=== PATIENT | male | born 1980 | race American Indian/Alaskan Native ===

== ENCOUNTER 2018-03-20 06:34 | Emergency (ER) | payer SELFPAY ==
[2018-03-20 07:35] VITALS: BP 120/69
[2018-03-20] MEDS ORDERED: DELTASONE PO ONE (08:11)
[2018-03-20] MEDS ORDERED: DUONEB *Not for PRN Use IH ONE (08:12)
--- NOTE | 2018-03-20 08:14 | Emergency Department Report ---
- General Chief Complaint: Upper Respiratory Infection Stated Complaint: FEVER,VOMITING,CHILLS Time Seen by Provider: 03/20/18 08:07 Source: patient Mode of arrival: Ambulatory Limitations: No Limitations - History of Present Illness MD Complaint: fever, cough, sore throat, rhinorrhea, nasal congestion, sinus pain -: Gradual, days(s) Consistency: constant Associated Symptoms: fever, chills, nasal congestion, sore throat, cough. denies: myalgias, diaphoresis, headache, stiff neck, chest pain, shortness of breath, abdominal pain, nausea, vomiting, diarrhea, dysuria, rash, confusion, right sweats, weight loss, epistaxis, hoarseness, ear pain - Related Data Previous Rx's Medication Instructions Recorded Last Taken Type ALBUTEROL Inhaler (OR & NICU) 2 puff IH QID PRN #1 inhalation 03/20/18 Unknown Rx [ProAir HFA Inhaler] Azithromycin [Zithromax Z-MIKE] 250 mg PO DAILY #6 tablet 03/20/18 Unknown Rx Fluticasone [Flonase] 1 spray NS QDAY #1 bottle 03/20/18 Unknown Rx predniSONE [Deltasone] 50 mg PO QDAY #5 tab 03/20/18 Unknown Rx Allergies Allergy/AdvReac Type Severity Reaction Status Date / Time No Known Allergies Allergy Unverified 03/20/18 07:35 ED Review of Systems ROS: Stated complaint: FEVER,VOMITING,CHILLS Other details as noted in HPI Comment: All other systems reviewed and negative Constitutional: chills, fever Eyes: denies: eye pain, eye discharge ENT: throat pain. denies: dental pain Respiratory: cough, wheezing. denies: orthopnea, shortness of breath Cardiovascular: denies: chest pain, palpitations, dyspnea on exertion, orthopnea Endocrine: denies: flushing, intolerance to cold, intolerance to heat Gastrointestinal: denies: abdominal pain, nausea, vomiting Genitourinary: denies: urgency, dysuria Musculoskeletal: denies: back pain Skin: denies: rash, lesions Neurological: headache. denies: weakness, numbness Psychiatric: denies: anxiety, depression Hematological/Lymphatic: denies: easy bleeding ED Past Medical Hx - Past Medical History Previous Medical History?: No - Surgical History Past Surgical History?: No - Family History Family history: no significant - Social History Smoking Status: Current Every Day Smoker Substance Use Type: None - Medications Home Medications: Home Medications Medication Instructions Recorded Confirmed Last Taken Type ALBUTEROL Inhaler (OR & NICU) 2 puff IH QID PRN #1 inhalation 03/20/18 Unknown Rx [ProAir HFA Inhaler] Azithromycin [Zithromax Z-MIKE] 250 mg PO DAILY #6 tablet 03/20/18 Unknown Rx Fluticasone [Flonase] 1 spray NS QDAY #1 bottle 03/20/18 Unknown Rx predniSONE [Deltasone] 50 mg PO QDAY #5 tab 03/20/18 Unknown Rx ED Physical Exam - General Limitations: No Limitations, Language Barrier General appearance: alert, in no apparent distress - Head Head exam: Present: atraumatic - Eye Eye exam: Present: PERRL, EOMI Pupils: Present: normal accommodation - ENT ENT exam: Present: normal exam, mucous membranes moist, other (pharynx red no exudate) - Neck Neck exam: Present: normal inspection - Respiratory Respiratory exam: Present: wheezes (b) - Cardiovascular Cardiovascular Exam: Present: regular rate, tachycardia, other (fever tx and hr dec) - GI/Abdominal GI/Abdominal exam: Present: soft. Absent: distended, tenderness, guarding, rebound - Rectal Rectal exam: Present: deferred - Extremities Exam Extremities exam: Present: normal inspection - Back Exam Back exam: Present: normal inspection - Neurological Exam Neurological exam: Present: alert, oriented X3 - Psychiatric Psychiatric exam: Present: normal affect, normal mood - Skin Skin exam: Present: warm, dry, rash ED Course Vital Signs 03/20/18 03/20/18 03/20/18 07:33 08:47 09:20 Temperature 99.1 F Pulse Rate 74 Pulse Rate [ 82 100 H Posterior Bilateral Throughout] Respiratory 18 Rate Respiratory 20 20 Rate [Posterior Bilateral Throughout] Blood Pressure 120/69 O2 Sat by Pulse 95 Oximetry - Reevaluation(s) Reevaluation #1: 03/20/18 09:38 urti sinus pain and pressure sore throat cough purulent sputum asthma as kid no abd pain no dysuria Reevaluation #2: 03/20/18 09:39 rt tx with improvement fever dec w meds taking po ambulatory discussed dc follow up and plan of care with pt and . ED Medical Decision Making - Radiology Data Radiology results: report reviewed, image reviewed - Medical Decision Making fever purulent sputum cough wheezing hx asthma no consolidation responding to treatment - Differential Diagnosis urti v asthma ae w or wo urti v pna Critical care attestation.: If time is entered above; I have spent that time in minutes in the direct care of this critically ill patient, excluding procedure time. ED Disposition Clinical Impression: URTI (acute upper respiratory infection), Asthma exacerbation, Fever, Sinusitis Disposition: - TO HOME OR SELFCARE Is pt being admited?: No Does the pt Need Aspirin: No Condition: Stable Instructions: Asthma (ED), Upper Respiratory Infection (ED) Additional Instructions: rest fluids motrin or tylenol for pain or fever follow up with pcp in 3 days if no better meds as ordered today Prescriptions: ALBUTEROL Inhaler (OR & NICU) [ProAir HFA Inhaler] 2 puff IH QID PRN #1 inhalation PRN Reason: Shortness Of Breath Azithromycin [Zithromax Z-MIKE] 250 mg PO DAILY #6 tablet Fluticasone [Flonase] 1 spray NS QDAY #1 bottle predniSONE [Deltasone] 50 mg PO QDAY #5 tab Referrals: PRIMARY CAREMD [Primary Care Provider] - 3-5 Days PAMELLA FRAGA MD [Staff Physician] - 3-5 Days Forms: Work/School Release Form(ED) Time of Disposition: 09:27
--- NOTE | 2018-03-20 08:56 | XRay Report ---
FINAL REPORT EXAM: XR CHEST ROUTINE 2V HISTORY: cough TECHNIQUE: PA and lateral chest radiographs PRIORS: None. FINDINGS: No mediastinal shift. Cardiac silhouette is not enlarged. No pneumothorax, effusion, or focal pulmonary opacity. No acute skeletal finding. IMPRESSION: No focal pulmonary opacity.
[2018-03-20] MEDS ORDERED: MOTRIN PO ONE (09:27)
== END 2018-03-20 09:40 | disposition home or self-care (01) ==
LOC: ED 06:34
DX: J45.901 Unspecified asthma with (acute) exacerbation (principal); J06.9 Acute upper respiratory infection, unspecified; J32.9 Chronic sinusitis, unspecified; F17.200 Nicotine dependence, unspecified, uncomplicated
CPT/HCPCS: 71046; 94640; 99283; J7512